=== PATIENT | female | born 1985 | race Hispanic/Latino ===

== ENCOUNTER 2019-06-27 07:41 | Inpatient (IN) | payer BC, OTHER ==
[~2019-06-27] VITALS: Ht 162.6 cm; Wt 77.0 kg
--- OUTSIDE RECORDS SUMMARY | ~2019-06-27 | XMS | Encounter Summary ---
Demographics + + + | Address | [address] | | | [place] [address] | + + + | Home Phone | | + + + | Preferred Language | Unknown | + + + | Marital Status | | + + + | Moravian Affiliation | 1041 | + + + | Race | Unknown | + + + | Ethnic Group | Unknown | + + + Author + + + | Author | [facility] | | | and [place] | + + + | Organization | [facility] | | | and [place] | + + + | Address | Unknown | + + + | Phone | Unavailable | + + + Support + + +---------+ + | Name | Relationship | Address | Phone | + + +---------+ + | Oswaldo Gunter | ECON | Unknown | | + + +---------+ + Care Team Providers + +------+ + | Care Nursing Program Chair Name | Role | Phone | + +------+ + PCP | Unavailable | + +------+ + Encounter Details +--------+ + + + + | Date | Type | Department | Care Team | Description | +--------+ + + + + | 05/02/ | Emergency | [facility] | Fransisco Johnson | Mass of left ovary | | 2017 | | MEDICAL [facility]ENTER | MD [address] | | | | | EM[facility]ENTER | [place], [place] | | | | | [address] [facility] | [address] | | | | | [place], [place] | [phone] | | | | | [address] | | | | | | [phone] | | | +--------+ + + + + Social History + +-------+ +--------+------+ | Tobacco Use | Types | Packs/Day | Years | Date | | | | | Used | | + +-------+ +--------+------+ | Never Assessed | | | | | + +-------+ +--------+------+ + + + | Sex Assigned at | Date Recorded | | | | + + + | Not on file | | + + + + + + + | Job Start Date | Occupation | Industry | + + + + | Not on file | Not on file | Not on file | + + + + + + + + | Travel History | Travel Start | Travel End | + + + + + + | No recent travel history available. | + + documented as of this encounter Last Filed Vital Signs + + + + + | Vital Sign | Reading | Time Taken | Comments | + + + + + | Blood Pressure | 114/69 | 05/02/2017 5:38 PM | | | | | PST | | + + + + + | Pulse | 62 | 05/02/2017 5:38 PM | | | | | PST | | + + + + + | Temperature | 36.7 C (98.1 F) | 05/02/2017 5:38 PM | | | | | PST | | + + + + + | Respiratory Rate | 16 | 05/02/2017 5:38 PM | | | | | PST | | + + + + + | Oxygen Saturation | - | - | | + + + + + | Inhaled Oxygen | - | - | | | Concentration | | | | + + + + + | Weight | 79.2 kg (174 lb 9.6 | 05/02/2017 5:38 PM | | | | oz) | PST | | + + + + + | Height | - | - | | + + + + + | Body Mass Index | 30.93 | 05/02/2017 10:04 AM | | | | | PST | | + + + + + documented in this encounter Plan of Treatment Not on filedocumented as of this encounter Procedures + +--------+ + + + | Procedure Name | Priori | Date/Time | Associated Diagnosis | Comments | | | ty | | | | + +--------+ + + + | US PELVIS | Routin | 05/02/2017 | | Results for this | | TRANSABDOMINAL | e | 3:16 PM | | procedure are in the | | | | PST | | results section. | + +--------+ + + + | CT ABDOMEN PELVIS WO | Routin | 05/02/2017 | | Results for this | | CONTRAST | e | 12:59 PM | | procedure are in the | | | | PST | | results section. | + +--------+ + + + | URINALYSIS, REFLEX | Routin | 05/02/2017 | | Results for this | | MICROSCOPIC AND/OR | e | 12:22 PM | | procedure are in the | | CULTURE | | PST | | results section. | + +--------+ + + + | HCG, URINE, QUAL | Routin | 05/02/2017 | | Results for this | | | e | 12:22 PM | | procedure are in the | | | | PST | | results section. | + +--------+ + + + | EXTERNAL LAB: CBC | Routin | 05/02/2017 | | Results for this | | | e | 12:21 PM | | procedure are in the | | | | PST | | results section. | + +--------+ + + + | C-REACTIVE PROTEIN | Routin | 05/02/2017 | | Results for this | | | e | 12:21 PM | | procedure are in the | | | | PST | | results section. | + +--------+ + + + | COMPREHENSIVE | Routin | 05/02/2017 | | Results for this | | METABOLIC PANEL | e | 12:21 PM | | procedure are in the | | | | PST | | results section. | + +--------+ + + + documented in this encounter Results US Pelvis Transabdominal (05/02/2017 3:16 PM PST) + + | Specimen | + + | | + + + + + | Impressions | Performed At | + + + | 1. Enlarged left ovary with complex mildly complex primarily | | | cystic mass in left ovary measuring 8.9 x 7.9 x 9 cm. Arterial and | | | venous flow is visualized in left ovary. Given possible presence of | | | fat within the lesion on abdominal CT from earlier the same day, the | | | lesion could represent a dermoid cyst. In the absence of prior | | | comparison, recommend attention on follow-up imaging with pelvic | | | ultrasound in 6 weeks. 2. Normal uterus and right ovary. 3. No | | | free fluid in cul-de-sac. | | + + + + + + | Narrative | Performed At | + + + | PRIYANKA GUNTER US PELVIS TRANSABDOMINAL 05/02/2017 3:16 PM | | | HISTORY: 31 years. Female. Pelvic pain. Abdominal pain. | | | TECHNIQUE: Imaging was performed using a 4 MHz curved array | | | transabdominal transducer and an 8 MHz endovaginal transducer. | | | Grayscale and color Doppler techniques were used. COMPARISON: | | | CT from earlier the same day. FINDINGS: Uterus: 9.7 x 3.5 x 5.4 | | | cm. Uterus is anteverted. Normal myometrium. Endometrial stripe | | | thickness measures 6.4 mm. Free Fluid: No free fluid is seen in | | | the cul-de-sac or adnexal regions. Right Ovary: 4.4 x 1.9 x 3.3 | | | cm. Normal-appearing follicles noted. No cyst or mass seen. | | | Normal arterial and venous blood flow is seen with color and | | | spectral Doppler. Left Ovary: Enlarged 11 x 7.8 x 9.4 cm. Large | | | complex mildly complex predominantly cystic mass with few thin | | | internal septations in left ovary measuring 8.9 x 7.9 x 9 cm. Normal | | | arterial and venous blood flow is seen with color and spectral | | | Doppler. | | + + + + + | Procedure Note | + + | Bharat, Rad Conversion - 01/26/2019 10:44 AM PDT PRIYANKA [place] PELVIS | | [id number]/19/2017 3:16 PM HISTORY:31 years. Female. Pelvic pain. Abdominal | | pain. TECHNIQUE:Imaging was performed using a 4 MHz curved array transabdominal | | transducer and an 8 MHz endovaginal transducer. Grayscale and color Doppler techniques | | were used. COMPARISON:CT from earlier the same day. FINDINGS:Uterus: 9.7 x 3.5 x 5.4 cm. | | Uterus is anteverted. Normal myometrium. Endometrial stripe thickness measures 6.4 mm. | | Free Fluid: No free fluid is seen in the cul-de-sac or adnexal regions. Right Ovary: 4.4 | | x 1.9 x 3.3 cm. Normal-appearing follicles noted. No cyst or mass seen. Normal | | arterial and venous blood flow is seen with color and spectral Doppler. Left Ovary: | | Enlarged 11 x 7.8 x 9.4 cm. Large complex mildly complex predominantly cystic mass with | | few thin internal septations in left ovary measuring 8.9 x 7.9 x 9 cm. Normal arterial | | and venous blood flow is seen with color and spectral Doppler. IMPRESSION: 1. Enlarged | | left ovary with complex mildly complex primarily cystic mass in left ovary measuring | | 8.9 x 7.9 x 9 cm. Arterial and venous flow is visualized in left ovary. Given possible | | presence of fat within the lesion on abdominal CT from earlier the same day, the lesion | | could represent a dermoid cyst. In the absence of prior comparison, recommend attention | | on follow-up imaging with pelvic ultrasound in 6 weeks.2. Normal uterus and right | | ovary.3. No free fluid in cul-de-sac. Electronically signed by Klaudia Peguero on | | 05/02/2017 3:28 PM | | | |Left Ovary: Enlarged 11 x 7.8 x 9.4 cm. Large complex mildly complex predominantly cystic mass with few thin internal septations in left ovary measuring 8.9 x 7.9 x 9 cm. Normal art erial and venous blood flow is seen with color and spectral Doppler. | | | |IMPRESSION: | |1. Enlarged left ovary with complex mildly complex primarily cystic mass in left ovary tanika suring 8.9 x 7.9 x 9 cm. Arterial and venous flow is visualized in left ovary. Given possibl e presence of fat within the lesion on abdominal CT from earlier the | |same day, the lesion could represent a dermoid cyst. In the absence of prior comparison, re commend attention on follow-up imaging with pelvic ultrasound in 6 weeks. | |2. Normal uterus and right ovary. | |3. No free fluid in cul-de-sac. | | | | | + + CT Abdomen Pelvis wo Contrast (05/02/2017 12:59 PM PST) + + | Specimen | + + | | + + + + + | Impressions | Performed At | + + + | 1. Large complex cystic mass in left adnexa measuring | | | approximately 7.9 x 8.2 x 8.1 cm, possible dermoid cyst. Torsion | | | cannot be excluded in appropriate clinical settings. Recommend pelvic | | | ultrasound for further evaluation as clinically warranted. 2. | | | Normal uterus and right ovary. The uterus is deviated to the right | | | side. 3. Colonic diverticulosis without acute diverticulitis. 4. | | | Normal-appearing appendix is identified in right lower quadrant of | | | abdomen. No definite CT evidence of acute appendicitis. 5. | | | Additional incidental findings as detailed above. Electronically | | | signed by Klaudia Peguero on 05/02/2017 1:16 PM | | + + + + + + | Narrative | Performed At | + + + | PRIYANKA [place] CT ABDOMEN PELVIS WO CONTRAST 05/02/2017 12:59 PM | | | HISTORY: 31 years. Female. [Abdominal and flank pain. | | | TECHNIQUE: 5-mm axial images were acquired through the abdomen and | | | pelvis. 1.25 mm axial and 2 mm coronal reconstructions were performed. | | | No oral or IV contrast was used. Dose reduction techniques were | | | used including automated exposure control (AEC), iterative | | | reconstruction technique, and/or mA and/or kV dose adjustments based | | | on patient size. COMPARISON: None. FINDINGS: Normal | | | cardiac size. Normal visualized portions of both lungs. Normal | | | liver, gallbladder, spleen and pancreas. No biliary dilation. The | | | pancreatic duct is not dilated. Normal both adrenals and neck Both | | | kidneys are normal in size and attenuation. No renal stone or | | | ureteric stone is visualized. No hydroureteronephrosis. Colonic | | | diverticulosis without acute diverticulitis. No intestinal | | | obstruction. Normal appendix. There is a complex cystic mass in | | | left adnexa measuring approximately 7.9 x 8.2 x 8.1 cm with | | | predominantly fluid attenuation. The lesion shows small eccentric area | | | of calcification, image 52/series 5B and small peripheral crescentic | | | area of fat attenuation, image 212/series 4, image 52/series 5B, | | | image 64/series 3. There is mass effect on left lateral aspect and | | | dome of urinary bladder. Urinary bladder is partially distended. | | | Normal right ovary. Uterine view of uterus is displaced to the right | | | side. No abdominal or pelvic ascites. No pneumoperitoneum. | | | Small fat-containing umbilical hernia. No acute fracture or | | | dislocation. Small sclerotic lesion in femoral head bilaterally, | | | possibly bone islands. No acute osseous abnormality. | | + + + + + | Procedure Note | + + | Bharat, Rad Conversion - 01/26/2019 10:44 AM PDT PRIYANKA OROZCOCT ABDOMEN PELVIS WO | | [id number]/19/2017 12:59 PM HISTORY:31 years. Female. [Abdominal and flank pain. | | TECHNIQUE:5-mm axial images were acquired through the abdomen and pelvis. 1.25 mm axial | | and 2 mm coronal reconstructions were performed. No oral or IV contrast was used. Dose | | reduction techniques were used including automated exposure control (AEC), iterative | | reconstruction technique, and/or mA and/or kV dose adjustments based on patient size. | | COMPARISON:None. FINDINGS:Normal cardiac size. Normal visualized portions of both lungs. | | Normal liver, gallbladder, spleen and pancreas. No biliary dilation. The pancreatic | | duct is not dilated. Normal both adrenals and neck Both kidneys are normal in size and | | attenuation. No renal stone or ureteric stone is visualized. No hydroureteronephrosis. | | Colonic diverticulosis without acute diverticulitis. No intestinal obstruction. Normal | | appendix. There is a complex cystic mass in left adnexa measuring approximately 7.9 x | | 8.2 x 8.1 cm with predominantly fluid attenuation. The lesion shows small eccentric area | | of calcification, image 52/series 5B and small peripheral crescentic area of fat | | attenuation, image 212/series 4, image 52/series 5B, image 64/series 3. There is mass | | effect on left lateral aspect and dome of urinary bladder. Urinary bladder is partially | | distended. Normal right ovary. Uterine view of uterus is displaced to the right side. No | | abdominal or pelvic ascites. No pneumoperitoneum. Small fat-containing umbilical | | hernia. No acute fracture or dislocation. Small sclerotic lesion in femoral head | | bilaterally, possibly bone islands. No acute osseous abnormality. IMPRESSION: 1. Large | | complex cystic mass in left adnexa measuring approximately 7.9 x 8.2 x 8.1 cm, possible | | dermoid cyst. Torsion cannot be excluded in appropriate clinical settings. Recommend | | pelvic ultrasound for further evaluation as clinically warranted.2. Normal uterus and | | right ovary. The uterus is deviated to the right side.3. Colonic diverticulosis without | | acute diverticulitis.4. Normal-appearing appendix is identified in right lower | | quadrant of abdomen. No definite CT evidence of acute appendicitis.5. Additional | | incidental findings as detailed above. Electronically signed by Klaudia Peguero on | | 05/02/2017 1:16 PM | | | |No abdominal or pelvic ascites. No pneumoperitoneum. | | | |Small fat-containing umbilical hernia. | | | |No acute fracture or dislocation. Small sclerotic lesion in femoral head bilaterally, possi tano bone islands. No acute osseous abnormality. | | | |IMPRESSION: | |1. Large complex cystic mass in left adnexa measuring approximately 7.9 x 8.2 x 8.1 cm, po ssible dermoid cyst. Torsion cannot be excluded in appropriate clinical settings. Recommend pelvic ultrasound for further evaluation as clinically warranted. | |2. Normal uterus and right ovary. The uterus is deviated to the right side. | |3. Colonic diverticulosis without acute diverticulitis. | |4. Normal-appearing appendix is identified in right lower quadrant of abdomen. No definite CT evidence of acute appendicitis. | |5. Additional incidental findings as detailed above. | | | | | + + Urinalysis, Reflex Microscopic and/or Culture (05/02/2017 12:22 PM PST) + + + + + + | Component | Value | Ref Range | Performed | Pathologist | | | | | At | Signature | + + + + + + | Color | STRAW | | EXTERNAL | | | | | | LAB | | + + + + + + | Clarity | CLEAR | | EXTERNAL | | | | | | LAB | | + + + + + + | Specific | 1.006 | 1.002 - 1.030 | EXTERNAL | | | [facility] | | | LAB | | + + + + + + | Leukocyte | NEGATIVE | | EXTERNAL | | | Esterase, | | | LAB | | | Urine | | | | | + + + + + + | Nitrite, | NEGATIVE | | EXTERNAL | | | Urine | | | LAB | | + + + + + + | Urobilinoge | NORMAL | mg/dL | EXTERNAL | | | n, Urine | | | LAB | | + + + + + + | Protein, | NEGATIVE | mg/dL | EXTERNAL | | | Urine | | | LAB | | + + + + + + | pH, Urine | 6.0 | 5.0 - 8.0 | EXTERNAL | | | | | | LAB | | + + + + + + | Blood, | NEGATIVE | | EXTERNAL | | | Urine | | | LAB | | + + + + + + | Ketones | NEGATIVE | mg/dL | EXTERNAL | | | | | | LAB | | + + + + + + | Bilirubin, | NEGATIVE | | EXTERNAL | | | Urine | | | LAB | | + + + + + + | Glucose, | NEGATIVEComment: Testing | mg/dL | EXTERNAL | | | Urine | performed at [facility];[address] | | LAB | | | | [address];[place], [place] | | | | | | [address] | | | | + + + + + + + + | Specimen | + + | | + + + +---------+ + + | Performing | Address | City/State/Zipcode | Phone Number | | Organization | | | | + +---------+ + + | EXTERNAL LAB | | | | + +---------+ + + , Urine, Qual (05/02/2017 12:22 PM PST) + + + + + + | Component | Value | Ref Range | Performed | Pathologist | | | | | At | Signature | + + + + + + | Preg Test, | NEGATIVEComment: Testing | | EXTERNAL | | | Ur | performed at [facility] | | LAB | | | | [address];[place], [place] | | | | | | [address] | | | | + + + + + + + + | Specimen | + + | Urine specimen | | (specimen) | + + + +---------+ + + | Performing | Address | City/State/Zipcode | Phone Number | | Organization | | | | + +---------+ + + | EXTERNAL LAB | | | | + +---------+ + + External Lab: CBC (05/02/2017 12:21 PM PST) + + + + + + | Component | Value | Ref Range | Performed | Pathologist | | | | | At | Signature | + + + + + + | WBC | 5.76 | 3.80 - 11.00 | EXTERNAL | | | | | K/uL | LAB | | + + + + + + | RED CELL | 4.26 | 3.70 - 5.10 | EXTERNAL | | | COUNT | | M/uL | LAB | | + + + + + + | Hgb | 13.1 | 11.3 - 15.5 | EXTERNAL | | | | | g/dL | LAB | | + + + + + + | Hematocrit, | 38.1 | 34.0 - 46.0 % | EXTERNAL | | | POC | | | LAB | | + + + + + + | MCV | 89.6 | 80.0 - 100.0 fl | EXTERNAL | | | | | | LAB | | + + + + + + | MCH | 30.7 | 27.0 - 34.0 pg | EXTERNAL | | | | | | LAB | | + + + + + + | MCHC | 34.2 | 32.0 - 35.5 | EXTERNAL | | | | | g/dL | LAB | | + + + + + + | RDW-CV | 41.6 | 37 - 53 fl | EXTERNAL | | | | | | LAB | | + + + + + + | Platelet | 248 | 150 - 400 K/uL | EXTERNAL | | | Count | | | LAB | | | Plasma | | | | | + + + + + + | MPV | 8.7 | fl | EXTERNAL | | | | | | LAB | | + + + + + + | Differentia | AUTOMATED | | EXTERNAL | | | l Type | | | LAB | | + + + + + + | % Segmented | 59.08 | % | EXTERNAL | | | | | | LAB | | | Neutrophils | | | | | + + + + + + | % | 34.21 | % | EXTERNAL | | | Lymphocytes | | | LAB | | + + + + + + | % Monocytes | 5.26 | % | EXTERNAL | | | | | | LAB | | + + + + + + | % | 0.74 | % | EXTERNAL | | | Eosinophils | | | LAB | | + + + + + + | % Basophils | 0.71 | % | EXTERNAL | | | | | | LAB | | + + + + + + | Absolute | 3.41 | 1.90 - 7.40 | EXTERNAL | | | Segmented | | K/uL | LAB | | | Neutrophils | | | | | + + + + + + | Absolute | 1.97 | 1.00 - 3.90 | EXTERNAL | | | Lymphocytes | | K/uL | LAB | | + + + + + + | Absolute | 0.30 | 0.00 - 0.80 | EXTERNAL | | | Monocytes | | K/uL | LAB | | + + + + + + | Absolute | 0.04 | 0.00 - 0.50 | EXTERNAL | | | Eosinophils | | K/uL | LAB | | + + + + + + | Absolute | 0.04Comment: Testing | 0.00 - 0.10 | EXTERNAL | | | Basophils | performed at [facility];[address] | K/[address]L | LAB | | | | [address];[place], [place] | | | | | | [address] | | | | + + + + + + + + | Specimen | + + | Blood specimen | | (specimen) | + + + +---------+ + + | Performing | Address | City/State/Zipcode | Phone Number | | Organization | | | | + +---------+ + + | EXTERNAL LAB | | | | + +---------+ + + C-Reactive Protein (05/02/2017 12:21 PM PST) + + + + + + | Component | Value | Ref Range | Performed | Pathologist | | | | | At | Signature | + + + + + + | CRP | <0.3Comment: Testing | mg/dL | EXTERNAL | | | | performed at [facility];[address] | | LAB | | | | [address];[place] | | | | | | [address] | | | | + + + + + + + + | Specimen | + + | Blood specimen | | (specimen) | + + + +---------+ + + | Performing | Address | City/State/Zipcode | Phone Number | | Organization | | | | + +---------+ + + | EXTERNAL LAB | | | | + +---------+ + + Comprehensive Metabolic Panel (05/02/2017 12:21 PM PST) + + + + + + | Component | Value | Ref Range | Performed | Pathologist | | | | | At | Signature | + + + + + + | Na | 142 | 135 - 145 | EXTERNAL | | | | | mmol/L | LAB | | + + + + + + | K | 3.5 | 3.5 - 4.9 | EXTERNAL | | | | | mmol/L | LAB | | + + + + + + | Cl | 109 | 99 - 109 mmol/L | EXTERNAL | | | | | | LAB | | + + + + + + | CO2 | 25 | 23 - 32 mmol/L | EXTERNAL | | | | | | LAB | | + + + + + + | Anion Gap | 11 | 5 - 20 mmol/L | EXTERNAL | | | | | | LAB | | + + + + + + | Glucose, | 90 | 65 - 99 mg/dL | EXTERNAL | | | Fasting | | | LAB | | + + + + + + | BUN | 9 | 8 - 25 mg/dL | EXTERNAL | | | | | | LAB | | + + + + + + | Creatinine | 0.55 | 0.50 - 1.00 | EXTERNAL | | | | | mg/dL | LAB | | + + + + + + | BUN/Creatin | 17 | | EXTERNAL | | | ine Ratio | | | LAB | | + + + + + + | Calcium | 8.5 | 8.5 - 10.5 | EXTERNAL | | | | | mg/dL | LAB | | + + + + + + | Protein, | 7.0 | 6.3 - 8.2 g/dL | EXTERNAL | | | Total | | | LAB | | + + + + + + | Albumin | 3.9 | 3.6 - 5.0 g/dL | EXTERNAL | | | | | | LAB | | + + + + + + | Globulin | 3.1 | 1.3 - 4.9 g/dL | EXTERNAL | | | | | | LAB | | + + + + + + | A/G Ratio | 1.2 | 1.0 - 2.4 | EXTERNAL | | | | | | LAB | | + + + + + + | Bilirubin | 0.4 | 0.1 - 1.5 mg/dL | EXTERNAL | | | Total | | | LAB | | + + + + + + | ALP, | 62 | 35 - 115 U/L | EXTERNAL | | | External | | | LAB | | + + + + + + | AST | 20 | 10 - 45 U/L | EXTERNAL | | | | | | LAB | | + + + + + + | ALT | 27 | 10 - 65 U/L | EXTERNAL | | | | | | LAB | | + + + + + + | Estimated | >60Comment: GFR <60: | mL/min/1.73m2 | EXTERNAL | | | GFR | CHRONIC KIDNEY DISEASE, | | LAB | | | | IF FOUND OVER A 3 MONTH | | | | | | PERIOD.GFR <15: KIDNEY | | | | | | FAILURE.FOR | | | | | | AMERICANS, MULTIPLY THE | | | | | | CALCULATED GFR BY | | | | | | 1.210.Testing performed | | | | | | at [facility];[address] [place] [address] | | | | | | [facility];[place] [address] | | | | + + + + + + + + | Specimen | + + | Blood specimen | | (specimen) | + + + +---------+ + + | Performing | Address | City/State/Zipcode | Phone Number | | Organization | | | | + +---------+ + + | EXTERNAL LAB | | | | + +---------+ + + documented in this encounter Visit Diagnoses + + | Diagnosis | + + | Mass of left ovary | + + documented in this encounter"
--- OUTSIDE RECORDS SUMMARY | ~2019-06-27 | XMS | Encounter Summary ---
Demographics + + + | Address | [address] | | | [place] [address] | + + + | Home Phone | | + + + | Preferred Language | Unknown | + + + | Marital Status | | + + + | Adventism Affiliation | 1041 | + + + | Race | Unknown | + + + | Ethnic Group | Unknown | + + + Author + + + | Author | [facility] | | | and [place] | + + + | Organization | [facility] | | | and [place] | + + + | Address | Unknown | + + + | Phone | Unavailable | + + + Support + + +---------+ + | Name | Relationship | Address | Phone | + + +---------+ + | Oswaldo Mcguire | ECON | Unknown | | + + +---------+ + Care Team Providers + +------+ + | Care Export Agent Name | Role | Phone | + +------+ + PCP | Unavailable | + +------+ + Encounter Details +--------+ + + + + | Date | Type | Department | Care Team | Description | +--------+ + + + + | 05/25/ | Orders Only | [facility] | Conversion | | | 2017 | | CONVERSION DEP [address] | Transaction, | | | | | [address] | Provider Unknown | | | | | [place] | [phone] | | | | | [address] | | | | | | [phone] | | | +--------+ + + + + Social History + +-------+ +--------+------+ | Tobacco Use | Types | Packs/Day | Years | Date | | | | | Used | | + +-------+ +--------+------+ | Never Smoker | | | | | + +-------+ [...] + + documented as of this encounter Plan of Treatment Not on filedocumented as of this encounter Visit Diagnoses Not on filedocumented in this encounter"
--- OUTSIDE RECORDS SUMMARY | ~2019-06-27 | XMS | Clinical Summary ---
Demographics + + + | Address | [address] | | | [place] [address] | + + + | Home Phone | | + + + | Preferred Language | Unknown | + + + | Marital Status | | + + + | Mu-Ism Affiliation | 1041 | + + + | Race | Unknown | + + + | Ethnic Group | Unknown | + + + Author + + + | Author | [facility] | | | and [place] | + + + | Organization | [facility] | | | and [...] Team Providers + +------+ + | Care Captain Fishing Vessel Name | Role | Phone | + +------+ + PCP | Unavailable | + +------+ + Allergies + + + + + + | Active Allergy | Reactions | Severity | Noted | Comments | | | | | Date | | + + + + + + | Morphine And Related | Rash | Medium | 05/05/20 | Pt states was | | | | | 18 | given an oral pain | | | | | | medication to take | | | | | | at home about 3 | | | | | | years ago and gave | | | | | | her a rash but she | | | | | | doesn't remember the | | | | | | name. Pt was given | | | | | | Tramadol in ED on | | | | | | 11/19/17 and is | | | | | | having no reactions. | | | | | | | + + + + + + | Acetaminophen-Codein | Rash | Medium | 05/25/20 | Swollen Throat | | e | | | 17 | | + + + + + + Medications + + + +---------+------+------+-------+ | Medication | Sig | Dispensed | Refills | Star | End | Statu | | | | | | t | Date | s | | | | | | Date | | | + + + +---------+------+------+-------+ | | Take 1 tablet by | | 0 | 12/ | | Activ | | traMADol-acetaminoph | mouth every 6 (six) | | | 2/20 | | e | | en (ULTRACET) | hours as needed for | | | 17 | | | | 37.5-325 MG per | Pain. 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 Rowe | | Rhonda, cystectomy performed, patient has both ovaries still. | | Risk of bilaterality was discussed. Right ovary was | | normal-appearing at time of surgery. Images are in the PACS | | system | + + Social History + +-------+ +--------+------+ [...] recent travel history available. | + + Last Filed Vital Signs + + + + + | Vital Sign | Reading | Time Taken | Comments | + + + + + | Blood Pressure | 106/58 | 05/25/2017 3:51 PM | | | | | PST | | + + + + + | Pulse | 76 | 05/25/2017 3:51 PM | | | | | PST | | + + + + + | Temperature | 36.8 C (98.3 F) | 05/05/2017 4:20 PM | | | | | PST | | + + + + + | Respiratory Rate | 12 | 05/05/2017 4:20 PM | | | | | PST | | + + + + + | Oxygen Saturation | - | - | | + + + + + | Inhaled Oxygen | - | - | | | Concentration | | | | + + + + + | Weight | 65 kg (143 lb 6.4 | 05/25/2017 3:51 PM | | | | oz) | PST | | + + + + + | Height | 160 cm (5' 3") | 05/14/2017 4:26 PM | | | | | PST | | + + + + + | Body Mass Index | 25.4 | 05/14/2017 4:26 PM | | | | | PST | | + + + + + Plan of Treatment + + + + + | Health Maintenance | Due Date | Last Done | Comments | + + + + + | Vaccine: | | | | | Dtap/Tdap/Td (1 - | 8 | | | | Tdap) | | | | + + + + + | Cervical Cancer | | | | | Screening (Pap) | 7 | | | + + + + + | Vaccine: Influenza | | | | | (#1) | 9 | | | + + + + + Results Not on filefrom Last 3 Months
--- OUTSIDE RECORDS SUMMARY | ~2019-06-27 | XMS | Encounter Summary ---
Demographics + + + | Address | [address] | | | [place] [address] | + + + | Home Phone | | + + + | Preferred Language | Unknown | + + + | Marital Status | | + + + | Nondenominational Affiliation | 1041 | + + + | Race | Unknown | + + + | Ethnic Group | Unknown | + + + Author + + + | Author | [facility] | | | and [place] | + + + | Organization | [facility] | | | and [place] | [...] Team Providers + +------+ + | Care Police Booking Officer Name | Role | Phone | + +------+ + PCP | Unavailable | + +------+ + Encounter Details +--------+ + + + + | Date | Type | Department | Care Team | Description | +--------+ + + + + | 05/05/ | Hospital | [facility] | Jae Ellis | Pelvic pain in | | 2017 | Encounter | [facility] | MD Jean-Pierre [address] | female; Mass of left | | | | [address] | [address] | ovary | | | | [place], [place] | [place] [address] | | | | | [address] | [phone] | | | | | [phone] | | | +--------+ + + + [...] + + + | Blood Pressure | 101/71 | 05/05/2017 4:20 PM | | | | | PST | | + + + + + | Pulse | 66 | 05/05/2017 4:20 PM | | | [...] + + + + | Weight | 63.2 kg (139 lb 5.3 | 05/05/2017 4:20 PM | | | | oz) | PST | | + + + + + | Height | 160 cm (5' 3") | 05/05/2017 4:20 PM | | | | | PST | | + + + + + | Body Mass Index | 24.68 | 05/05/2017 4:20 PM | | | | | PST | | + + + + + documented in this encounter Progress Notes Conversion Transaction, Provider Unknown - 05/05/2017 2:50 PM PSTFormatting of this note m ight be different from the original. Nurse Progress Note by Ryan Piña RN at 05/05/171449 Author: Ryan Piña RN Service: (none) Author Type: Registered Nurse Filed: 05/05/171453 Date of Service: 05/05/171449 Status: Addendum Bone Char Kiln Tender: Ryan Piña RN (Registered Nurse) Related Notes: Original Note by Ryan L Woodworking Machine Setter, RN (Registered Nurse) filed at 05/05/17 145 2 Complete discharge instructions given via airport clerk were given to Loren's David. Instructions included surgical site infection prevention and DVT precautions, also medication side effects. Loren ambulated to the bathroom and voided. docume nted in this encounter Plan of Treatment Not on filedocumented as of this encounter Procedures + +--------+ + + + | Procedure Name | Priori | Date/Time | Associated Diagnosis | Comments | | | ty | | | | + +--------+ + + + | TISSUE REQUEST FOR | Routin | 05/05/2017 | | Results for this | | PATHOLOGY (NON-ORD) | e | 12:00 AM | | procedure are in the | | | | PST | | results section. | + +--------+ + + + documented in this encounter Results Tissue Request For Pathology (05/05/2017 12:00 AM PST) + + | Specimen | + + | Soft tissue sample | | (specimen) | + + + + + | Narrative | Performed At | + + + | SPECIMEN(S): A OVARIAN CYST WALL SPECIMEN SOURCE: A. OVARIAN | EXTERNAL LAB | | CYST WALL CLINICAL HISTORY: 05/05/2017 at 1232 H. L ovarian cyst. | | | FINAL PATHOLOGIC DIAGNOSIS: Left ovarian cyst: - Mature | | | teratoma - Negative for atypical features and malignancy | | | COMMENT: In addition to dermal components there are foci of glandular | | | differentiation and bone formation. GROSS DESCRIPTION: One specimen | | | is received in one container, labeled with the patient's name: A. | | | Received in formalin designated "left ovarian tissue and cyst wall", | | | consists of a previously opened cystic structure that is received in 2 | | | pieces which measure 5.2 x 4.8 x 1.7 cm in aggregate. The external | | | surface is pink and smooth. Inner lining of the multiloculated is pink | | | and smooth with one cystic component that contains a white pasty | | | material with blonde hair. No papillary excrescences are grossly | | | identified. Director Of Retail Analytics sections are submitted in cassette A1-A2. | | | FM The gross description section of this report has been prepared | | | using a voice recognition system. The report was reviewed for | | | accuracy, however, sound-alike word errors, addition and/or deletions | | | may occur. If there is any question about this report please contact | | | the pathology department. MICROSCOPIC EXAMINATION: Histologic | | | sections of all submitted blocks are examined by light microscopy. | | | These findings, together with the gross examination, support the | | | pathologic diagnosis. PERFORMING LABORATORY: Professional | | | interpretation and technical preparation was performed by [facility] | | | [facility], [address], | | | [place] [address] (Parts Data Writer: Scott Velazco M.D.; [facility]#: | | | [id number]). Diagnostician: Scott Velazco MD Pathologist | | | Electronically Signed 05/10/2017 | | + + + + +---------+ + + | Performing | Address | City/State/Zipcode | Phone Number | | Organization | | | | + +---------+ + + | EXTERNAL LAB | | | | + +---------+ + + documented in this encounter Visit Diagnoses + + | Diagnosis | + + | Pelvic pain in female Unspecified symptom associated with female genital organs | + + | Mass of left ovary | + + documented in this encounter
--- OUTSIDE RECORDS SUMMARY | ~2019-06-27 | XMS | Encounter Summary ---
Demographics + + + | Address | [address] | | | [place] [address] | + + + | Home Phone | | + + + | Preferred Language | Unknown | + + + | Marital Status | | + + + | Yazidism Affiliation | 1041 | + + + | Race | Unknown | + + + | Ethnic Group | Unknown | + + + Author + + + | Author | [facility] | | | and [place] | + + + | Organization | [facility] | | | and [place] [...] Team Providers + +------+ + | Care Building Admin Name | Role | Phone | + +------+ + PCP | Unavailable | + +------+ + Encounter Details +--------+ + + + + | Date | Type | Department | Care Team | Description | +--------+ + + + + | 05/05/ | Hospital | [facility] | Conversion | | | 2017 | Encounter | [facility] | Transaction, | | | | | CLINIC [address] | Provider Unknown | | | | | [place] | | | | | | [address] | (Fax) | | | | | [phone] | | | +--------+ + + + [...] + + + | Blood Pressure | 114/61 | 05/05/2017 9:13 AM | | | | | PST | | + + + + + | Pulse | 92 | 05/05/2017 9:13 AM | | | | | PST | | + + + + + | Temperature | - | - | | + + + + + | Respiratory Rate | 18 | 05/05/2017 9:13 AM | | | | | PST | | + + + + + | Oxygen Saturation | - | - | | + + + + + | Inhaled Oxygen | - | - | | | Concentration | | | | + + + + + | Weight | 68 kg (149 lb 14.6 | 05/05/2017 9:13 AM | | | | oz) | PST | | + + + + + | Height | 160 cm (5' 3") | 05/05/2017 9:13 AM | | | | | PST | | + + + + + | Body Mass Index | 26.56 | 05/05/2017 9:13 AM | | | | | PST [...] | HCG, URINE, QUAL | Routin | 05/05/2017 | | Results for this | | | e | 9:08 AM | | procedure are in the | | | | PST | | results section. | + +--------+ + + + documented in this encounter Results , Urine, Qual (05/05/2017 9:08 AM PST) + + + + + + | Component | Value | Ref Range | Performed | Pathologist | | | | | At | Signature | + + + + + + | Preg Test, | NEGATIVEComment: Testing | | EXTERNAL | | | Ur | performed at [facility] | | LAB | | | | [address];[place], [place] | | | | | | [address] | | | | + + + [...] + documented in this encounter Visit Diagnoses Not on filedocumented in this encounter
--- OUTSIDE RECORDS SUMMARY | ~2019-06-27 | XMS | Clinical Summary ---
Demographics + + + | Address | [address] | | | [place] [address] | + + + | Home Phone | | + + + | Preferred Language | Unknown | + + + | Marital Status | | + + + | Taoism Affiliation | 1041 | + + + | Race | Unknown | + + + | Ethnic Group | Unknown | + + + Author + + + | Author | [facility] (Historical as of | | | 01-28-19) | + + + | Organization | [facility] (Historical as of | | | 01-28-19) | + + + | Address | Unknown | + + + | Phone | Unavailable | + + + Support + + + + + | Name | Relationship | Address | Phone | + + + + + | Oswaldo Gunter | ECON | [address] | | | | | [place], [place] | | | | | [address] | | + + + + + Care Team Providers + +------+ + | Care Team Facilitator Name | Role | Phone | + +------+ + | Leonides Harmon Primary | PP | | + +------+ + Allergies + + [...] on | | | | | | 05/02/17 and is | | | | | | having no reactions. | | | | | | | + + + + + + | Acetaminophen-Codein | Rash | Medium | 05/25/20 | Swollen Throat | | e | | | 17 | | + + + + + + Current Medications + + +-------+---------+------+------+-------+ | Prescription | Sig. | Disp. | Refills | Star | End | Statu | | | | | | t | Date | s | | | | | | Date | | | + + +-------+---------+------+------+-------+ | | Take 1 tablet by | | | | | Activ | | tramadol-acetaminoph | mouth every 6 (six) | | | | | e | | en (ULTRACET) | hours as needed for | | | | | | | 37.5-325 MG per | Pain. | | | | | | | tablet | | | | | | | + + +-------+---------+------+------+-------+ Active Problems + + + | Problem [...] PACS | | system | + + Resolved Problems + + + + | Problem | Noted | Resolved | | | Date | Date | + + + + | Mass of left ovary | 05/02/20 | | | | 18 | 7 | + + + + + + | Overview: Left adnexal mass, suspected 8 cm dermoid | + + + + + + | Pelvic pain in female | 05/02/20 | | | | 18 | 7 | + + + + + + | Overview: Evaluation subsequent revealed left adnexal mass | + + Social History + +-------+ +--------+------+ | Tobacco Use | Types | Packs/Day | Years | Date | | | | | Used | | + +-------+ +--------+------+ | Never Smoker | | | | | + +-------+ +--------+------+ + +---+---+---+ | Smokeless Tobacco: | | | | | Never Used | | | | + +---+---+---+ + + +---------+ + | Alcohol Use | Drinks/We | oz/Week | Comments | | | ek | | | + + +---------+ + | No | | | | + + +---------+ + + + + | Sex Assigned at | Date Recorded | | | | + + + | Not on file | | + + + Last Filed Vital Signs + + + + | Vital Sign | Reading | Time Taken | + + + + | Blood Pressure | 106/58 | 05/25/2017 3:49 PM PST | + + + + | Pulse | 76 | 05/25/2017 3:49 PM PST | + + + + | Temperature | 36.8 C (98.3 F) | 05/05/2017 2:45 PM PST | + + + + | Respiratory Rate | 12 | 05/05/2017 4:00 PM PST | + + + + | Oxygen Saturation | 100% | 05/25/2017 3:49 PM PST | + + + + | Inhaled Oxygen | - | - | | Concentration | | | + + + + | Weight | 65 kg (143 lb 6.4 | 05/25/2017 3:49 PM PST | | | oz) | | + + + + | Height | 160 cm (5' 3") | 05/14/2017 4:25 PM PST | + + + + | Body Mass Index | 25.4 | 05/25/2017 3:49 PM PST | + + + + Plan of Treatment + + + + + | Health Maintenance | Due Date | Last Done | Comments | + + + + + | Cervical Cancer | | | | | Screening (Pap) | 7 | | | + + + + + | Vaccine: Influenza | | 03/25/2012 | | | (#1) | 9 | | | + + + + + | Vaccine: | | 11/26/2014, 03/25/2012 | | | Dtap/Tdap/Td (3 - | 5 | | | | Td) | | | | + + + + + Results Not on filefrom Last 3 Months Insurance +---------+--------+ +------+-------+ + | Payer | Benefi | Subscriber | Type | Phone | Address | | | t Plan | ID | | | | | | / | | | | | | | Group | | | | | +---------+--------+ +------+-------+ + | PREMERA | PREMER | [id number] | | | [address] [address] | | | A BLUE | [address] | | [place] | | | CARD | | | | [phone] | +---------+--------+ +------+-------+ + + +--------+ +--------+ + + | Guarantor Name | Accoun | Relation to | Date | Phone | Billing Address | | | t Type | Patient | of | | | | | | | | | | + +--------+ +--------+ + + | PRIYANKA GUNTER | Person | Self [birth year] | Home: | [address] | | | brittany/Trace | | 1985 | [phone] | [place] [address] | | | mago | | | [phone] | | + +--------+ +--------+ + +
--- OUTSIDE RECORDS SUMMARY | ~2019-06-27 | XMS | Encounter Summary ---
Demographics + + + | Address | [address] | | | [place] [address] | + + + | Home Phone | | + + + | Preferred Language | Unknown | + + + | Marital Status | | + + + | Taoist Affiliation | 1041 | + + + | Race | Unknown | + + + | Ethnic Group | Unknown | + + + Author + + + | Author | [facility] | | | and [place] | + + + | Organization | [facility] | | | and [place] [...] Team Providers + +------+ + | Care Private Pilot Name | Role | Phone | + +------+ + PCP | Unavailable | + +------+ + Encounter Details +--------+ + + + + | Date | Type | Department | Care Team | Description | +--------+ + + + + | 05/14/ | Orders Only | [facility] | Bipin Wheeler | | | 2017 | | [address] | [address] | | | | | [place] | [address] | | | | | [address] | [place] [address] | | | | | [phone] | [phone] | | | | | | | | +--------+ + + + [...] + | URINALYSIS, REFLEX | Routin | 05/14/2017 | | Results for this | | MICROSCOPIC AND/OR | e | 12:01 AM | | procedure are in the | | CULTURE | | PST | | results section. | + +--------+ + + + documented in this encounter Results Urinalysis, Reflex Microscopic and/or Culture (05/14/2017 12:01 AM PST) + + + + + [...] + + + + | Specific | 1.004 | 1.002 - 1.030 | EXTERNAL | | | [facility] | | | LAB | | + [...] + + + | pH, Urine | 7.0 | 5.0 - 8.0 | EXTERNAL | [...] + + + + | Glucose, | NEGATIVE | mg/dL | EXTERNAL | [...]
--- NOTE | 2019-06-27 12:03 | PR ---
[facility] [address] [facility] [place], [place] [address] Signed Progress Notes IP Datetime Report Generated by CPN: 06/27/2019 12:03 PROGRESS NOTES: [id number] Impression: Normal progression of labor; Reassuring heart rate Procedures: Sterile Vag Exam Plan: Continue present management; Anticipate Vaginal Delivery VITAL SIGNS: [id number] Vital Signs: Reviewed; Within Normal Limits EXAM: [id number] Dilatation: 8.0 Effacement: 100 Station: 0 Uterine Contractions: q2 min MEMBRANES: [id number] Membrane Status: Bulging Comments: Pt doing well. Comfortable w/ epidural. 8cm. Next dose PCN due in 15 minutes. Continue expectant management. Will plan AROM at next check Fetus A: [id number] FHR Baseline: 140 Variability: Moderate 6-25bpm Accelerations: 15X15 Decelerations: None FHR Category: Category I Presentation: Vertex Comments on Fetus A: No evidence of metabolic acidosis Fetus B: [id number] Signing Physician: Jennifer Mireles DO Copies: ~ *Electronically Signed* 06/27/19 1203 JENNIFER MIRELES DO PATIENT NAME: PRIYANKA GUNTER PROGRESS NOTE DATE OF : 87 PHYSICIAN: JENNIFER MIRELES DO RPT #: [id number] REPORT IS CONFIDENTIAL AND NOT TO BE RELEASED WITHOUT AUTHORIZATION
--- NOTE | 2019-06-28 11:50 | PR ---
[facility] [address] [place], [place] [address] Signed PP Progress Notes Datetime Report Generated by CPN: 06/28/2019 11:49 SUBJECTIVE: [id number] Pain: Within normal limits Nausea/Vomiting: Denies Flatus: Yes Bowel Movement: No Vital Signs: [id number] Vital Signs: Reviewed; Within Normal Limits EXAM: [id number] Cardiovascular: Normal Respiratory: Normal Abdomen/Uterus: Normal Lochia: Normal Vulva/Perineum: Not Done Breasts: Not Done CVA Tenderness: Normal Extremities: Normal Incision: Not Applicable Progress: Normal Exam Comments: Fundus firm U-2 nontender IMPRESSION/PLAN/PROCEDURES: [id number] Impression: Normal progression Plan: Continue present management Progress Notes: Pt seen and examined. Doing well. Ambulating, voiding, and tolerating full diet. Pain and lochia minimal. well. No concerns. Anticipate d/c home tomorrow due to GBS+ status. All questions answered Signing Physician: Jennifer Mireles DO Copies: ~ *Electronically Signed* 06/28/19 1149 JENNIFER MIRELES DO PATIENT NAME: PRIYANKA GUNTER PROGRESS NOTE DATE OF : 87 PHYSICIAN: JENNIFER MIRELES DO RPT #: [id number] REPORT IS CONFIDENTIAL AND NOT TO BE RELEASED WITHOUT AUTHORIZATION
--- NOTE | 2019-06-29 11:45 | PR ---
[facility] [address] [facility] [place], [place] [address] Signed PP Progress Notes Datetime Report Generated by CPN: 06/29/2019 11:45 SUBJECTIVE: [id number] Pain: Within normal limits Nausea/Vomiting: Denies Flatus: Yes Bowel Movement: Yes Vital Signs: [id number] Vital Signs: Reviewed; Within Normal Limits EXAM: [id number] Cardiovascular: Normal Respiratory: Normal Abdomen/Uterus: Normal Lochia: Normal Vulva/Perineum: Not Done Breasts: Not Done CVA Tenderness: Normal Extremities: Normal Incision: Not Applicable Progress: Normal Exam Comments: Fundus firm U-2 nontender IMPRESSION/PLAN/PROCEDURES: [id number] Impression: Normal progression Plan: Discharge Progress Notes: Pt seen and examined. Doing well. Ambulating, voiding, and tolerating full diet. Pain and lochia minimal. well. No concerns. Desires d/c home. All questions answered Signing Physician: Jennifer Mireles DO Copies: ~ *Electronically Signed* 06/29/19 1145 JENNIFER MIRELES DO PATIENT NAME: PRIYANKA GUNTER PROGRESS NOTE DATE OF : 87 PHYSICIAN: JENNIFER MIRELES DO RPT #: [id number] REPORT IS CONFIDENTIAL AND NOT TO BE RELEASED WITHOUT AUTHORIZATION
== END 2019-06-29 13:45 | disposition home or self-care (01) | DRG 807 ==
LOC: FBCO 07:41 → FBC 08:00
PROVIDERS: ADMIT Obstetrics & Gynecology
PROC: 10E0XZZ Delivery of Products of Conception, External Approach (ICD-10-PCS; principal; 2019-06-27)
PROC: 0KQM0ZZ Repair Perineum Muscle, Open Approach (ICD-10-PCS; 2019-06-27)
PROC: 00HU33Z Insertion of Infusion Device into Spinal Canal, Percutaneous Approach (ICD-10-PCS; 2019-06-27)
PROC: 3E0R3BZ Introduction of Anesthetic Agent into Spinal Canal, Percutaneous Approach (ICD-10-PCS; 2019-06-27)
DX: O99.824 Streptococcus B carrier state complicating childbirth (principal); Z37.0 Single live birth; Z3A.39 39 weeks gestation of pregnancy; O69.1XX0 Labor and delivery complicated by cord around neck, with compression, not applicable or unspecified; O70.1 Second degree perineal laceration during delivery; Z88.5 Allergy status to narcotic agent; Z88.6 Allergy status to analgesic agent
CPT/HCPCS: 36415; 85027; A9270; J2540; J2795; J7060; J7121

== ENCOUNTER 2023-03-19 05:50 | Inpatient (IN) | payer BC, OTHER ==
[~2023-03-19] VITALS: Ht 157.5 cm; Wt 73.0 kg
[2023-03-19 06:52] LABS: HEMATOCRIT 36.2 % (35.0-50.0); HEMOGLOBIN 12.2 g/dL (12.0-18.0); MCH 32.1 (27-36); MCHC 33.8 g/dl (30-36); MCV 94.9 fl (81-99); RBC 3.82 M/ul (4.3-5.7)
[2023-03-19 06:57] LABS: AMPHETAMINES, UR NEGATIVE (NEGATIVE); MARIJUANA (THC), UR NEGATIVE (NEGATIVE)
[2023-03-19 06:58] LABS: BARBITURATES, UR NEGATIVE (NEGATIVE); BENZODIAZEPINES, UR NEGATIVE (NEGATIVE); BUPRENORPHINE,UR NEGATIVE (NEGATIVE); COCAINE, UR NEGATIVE (NEGATIVE); MDMA, UR NEGATIVE (NEGATIVE); METHADONE, UR NEGATIVE (NEGATIVE); METHAMPHETAMINE, UR NEGATIVE (NEGATIVE); OPIATES, UR NEGATIVE (NEGATIVE); OXYCODONE, UR NEGATIVE (NEGATIVE); PHENCYCLIDINE, UR NEGATIVE (NEGATIVE); TRICYCLIC ANTIDEPRESSANT, UR NEGATIVE (NEGATIVE)
[2023-03-19 07:25] LABS: ABO O; ANTIBODY SCREEN NEGATIVE; RH POSITIVE
[2023-03-19 07:43] LABS: INFLUENZA B NAA NEGATIVE (NEGATIVE); RESPIRATORY SYNCYTIAL VIR NAA NEGATIVE (NEGATIVE)
--- NOTE | 2023-03-19 09:29 | PR ---
[facility] [address] [facility] [place], [place] [address] Signed Progress Notes IP Datetime Report Generated by CPN: 03/19/2023 09:29 PROGRESS NOTES: [id number] Impression: Reassuring Heart Rate Procedures: Artificial ROM Plan: Continue Present Management VITAL SIGNS: [id number] Vital Signs: Reviewed; Within Normal Limits EXAM: [id number] Dilatation: 4.0 Effacement: 75 Station: -2 Contractions: irregular MEMBRANES: [id number] Comments: Comfortable after epidural. Will continue. FETUS A: [id number] FHR Baseline: 130 Variability: Moderate 6-25bpm Accelerations: 15X15 Decelerations: None FHR Category: Category I Presentation: Vertex Comments on Fetus A: no evidence of metabolic acidosis FETUS B: [id number] Signing Physician: Kemi Zaldivar MD Copies: ~ *Electronically Signed* 03/19/23928 KEMI ZALDIVAR MD PATIENT NAME: PRIYANKA GUNTER PROGRESS NOTE DATE OF : 87 PHYSICIAN: KEMI ZALDIVAR MD RPT #: [id number] REPORT IS CONFIDENTIAL AND NOT TO BE RELEASED WITHOUT AUTHORIZATION
--- NOTE | 2023-03-19 12:21 | PR ---
[facility] [address] [facility] [place] [address] Signed Progress Notes IP Datetime Report Generated by CPN: 03/19/2023 12:21 PROGRESS NOTES: [id number] Impression: Reassuring Heart Rate Procedures: Sterile Vag Exam Plan: Augmentation VITAL SIGNS: [id number] Vital Signs: Reviewed; Within Normal Limits EXAM: [id number] Dilatation: 4.5 Effacement: 75 Station: -2 Contractions: q 3 to 8 min MEMBRANES: [id number] Comments: Comfortable with epidural. Not much progress, however, and contractions are irregular. Will add low dose pitocin. Pt accepts plan. FETUS A: [id number] FHR Baseline: 130 Variability: Moderate 6-25bpm Accelerations: 15X15 Decelerations: None FHR Category: Category I Presentation: Vertex Comments on Fetus A: no evidence of metabolic acidosis FETUS B: [id number] Signing Physician: eKmi Zaldivar MD Copies: ~ *Electronically Signed* 03/19/23 1221 KEMI ZALDIVAR MD PATIENT NAME: PRIYANKA GUNTER PROGRESS NOTE DATE OF : 87 PHYSICIAN: KEMI ZALDIVAR MD RPT #: [id number] REPORT IS CONFIDENTIAL AND NOT TO BE RELEASED WITHOUT AUTHORIZATION
[2023-03-19 14:29] VITALS: BP 108/62
[2023-03-20 05:23] LABS: HEMATOCRIT 35.7 % (35.0-50.0); MCH 31.9 (27-36); MCHC 33.6 g/dl (30-36); MCV 94.9 fl (81-99); RBC 3.77 M/ul (4.3-5.7)
--- NOTE | 2023-03-20 10:42 | PR ---
[facility] [address] [place], [place] [address] Signed PP Progress Notes Datetime Report Generated by CPN: 03/20/2023 10:42 SUBJECTIVE: [id number] Vital Signs: [id number] EXAM: Ongoing IMPRESSION/PLAN/PROCEDURES: [id number] Progress Notes: S: 37 yo s/p vaginal delivery. PPD #1. Doing well. Has some continued numbness in her legs. Denies REYES, CP, SOB, F/C, N/V, RUQ pain, changes in vision, vaginal discharge. Tolerating regular diet, ambulating, voiding on her own, +flatus, pain controlled. O: AFVSS Abdomen: Soft. Non tender. Fundus firm and below umbilicus. Musc: DOE. A/P: Patient well. Still some continued numbness in her legs, but she is not having difficulty ambulating. Baby will stay an extra day per peds due to mother testing GBS positive. Plan for discharge home tomorrow AM. Signing Physician: Eric Hutchinson MD Copies: ~ *Electronically Signed* 03/20/23 1042 ERIC HUTCHINSON MD PATIENT NAME: GUNTER,PRIYANKA PROGRESS NOTE DATE OF : 87 PHYSICIAN: ERIC HUTCHINSON MD RPT #: [id number] REPORT IS CONFIDENTIAL AND NOT TO BE RELEASED WITHOUT AUTHORIZATION
--- NOTE | 2023-03-21 09:59 | PR ---
[facility] [address] [facility] [place] [address] Signed PP Progress Notes Datetime Report Generated by CPN: 03/21/2023 09:58 SUBJECTIVE: [id number] Pain: Within Normal Limits Nausea/Vomiting: Denies Flatus: Yes Bowel Movement: Yes Vital Signs: [id number] Vital Signs: Reviewed; Within Normal Limits EXAM: Ongoing Abdomen/Uterus: Normal Lochia: Normal Extremities: Normal Progress: Normal IMPRESSION/PLAN/PROCEDURES: [id number] Impression: Normal Progression Plan: Continue Present Management; Discharge Progress Notes: S: 37 yo Signing Physician: Eric Soto MD Copies: ~ *Electronically Signed* 03/21/23 0958 ERIC SOTO MD PATIENT NAME: PRIYANKA GUNTER PROGRESS NOTE DATE OF : 87 PHYSICIAN: ERIC SOTO MD RPT #: [id number] REPORT IS CONFIDENTIAL AND NOT TO BE RELEASED WITHOUT AUTHORIZATION
== END 2023-03-21 14:12 | disposition home or self-care (01) | DRG 807 ==
LOC: FBC 05:50
PROVIDERS: ADMIT Obstetrics & Gynecology; ATTEND Obstetrics & Gynecology
PROC: 10E0XZZ Delivery of Products of Conception, External Approach (ICD-10-PCS; principal; 2023-03-19)
PROC: 0KQM0ZZ Repair Perineum Muscle, Open Approach (ICD-10-PCS; 2023-03-19)
PROC: 3E0R3BZ Introduction of Anesthetic Agent into Spinal Canal, Percutaneous Approach (ICD-10-PCS; 2023-03-19)
PROC: 00HU33Z Insertion of Infusion Device into Spinal Canal, Percutaneous Approach (ICD-10-PCS; 2023-03-19)
PROC: 10907ZC Drainage of Amniotic Fluid, Therapeutic from Products of Conception, Via Natural or Artificial Opening (ICD-10-PCS; 2023-03-19)
DX: O99.824 Streptococcus B carrier state complicating childbirth (principal); Z37.0 Single live birth; Z20.822 Contact with and (suspected) exposure to COVID-19; O70.1 Second degree perineal laceration during delivery; O76 Abnormality in fetal heart rate and rhythm complicating labor and delivery; Z3A.39 39 weeks gestation of pregnancy
CPT/HCPCS: 01960; 36415; 85027; 86850; 86900; 86901; 87502; A9270; J2540; J2590; J2795; J3010; J7121; U0002